=== PATIENT | male | born 1970 | race Caucasian/White ===

== ENCOUNTER 2017-04-14 09:46 | Emergency (ER) | payer OTHER ==
[2017-04-14] MEDS ORDERED: Sodium Chloride 0.9% 2.5 ML Syringe FLUSH PRN (10:03)
[2017-04-14] MEDS ORDERED: Sodium Chloride 0.9% 10 ML Syringe FLUSH PRN (10:03)
--- NOTE | 2017-04-14 10:03 | EDM.PDOC ---
ED HPI GENERAL MEDICAL PROBLEM - General Chief Complaint: Flank Pain Stated Complaint: POSSIBLE KIDNEYSTONE Time Seen by Provider: 04/14/17 09:48 Source of Information: Reports: Patient - History of Present Illness INITIAL COMMENTS - FREE TEXT/NARRATIVE: History of present illness: []Patient started having left flank pain last night. Worked out 2 nights ago and thought he needed just pulled a muscle however pain started getting worse with sharp pain without movement. Pain is now Radiating to his left lower abdomen at this time and he feels he may have a kidney stone. Patient had one 10 years ago and he recalls the pain as being similar. Review of systems: As per history of present illness and below otherwise all systems reviewed and negative. Past medical history: As per history of present illness and as reviewed below otherwise noncontributory. Surgical history: As per history of present illness and as reviewed below otherwise noncontributory. Social history: No reported history of drug or alcohol abuse. Family history: As per history of present illness and as reviewed below otherwise noncontributory. Physical exam: General: Well developed, well nourished in NAD HEENT: Atraumatic, normocephalic, pupils reactive, negative for conjunctival pallor or scleral icterus, mucous membranes moist, throat clear, neck supple, nontender, trachea midline. Lungs: Clear to auscultation, breath sounds equal bilaterally, chest nontender. Heart: S1S2, regular, negative for clicks, rubs, or JVD. Abdomen: Soft, nondistended, nontender. Negative for masses or hepatosplenomegaly. Negative for costovertebral tenderness. Pelvis: Stable nontender. Genitourinary: Deferred. Rectal: Deferred. Extremities: Atraumatic, negative for cords or calf pain. Neurovascular unremarkable. Neuro: Awake, alert, oriented. Cranial nerves II through XII unremarkable. Cerebellum unremarkable. Motor and sensory unremarkable throughout. Exam nonfocal. Diagnostics: []CT shows 5 mm stone in the left UVJ that is nonobstructing, labs are normal Therapeutics: []IV fluids Toradol and Dilaudid given in the ED and Flomax Impression: []Ureterolithiasis Plan: []Follow-up urology take meds as directed return if symptoms worsen Definitive disposition and diagnosis as appropriate pending reevaluation and review of above. left flank Pain Score (Numeric/FACES): 7 - Related Data Allergies Allergy/AdvReac Type Severity Reaction Status Date / Time No Known Allergies Allergy Verified 04/14/17 09:47 Home Meds: Home Meds Gluc/Jose-Msm#2/C/D3/Suman/Born [Jfbcmjetgr-Qokuscffivf-WHS] 1,500 mg PO DAILY [History] Tamsulosin HCl [Flomax] 0.4 mg PO DAILY #14 cap.er.24h 04/14/17 [Rx] metFORMIN [Glucophage] 0 mg PO DAILY 04/14/17 [History] traMADol HCl [Tramadol HCl] 50 mg PO Q6H PRN #16 tablet 04/14/17 [Rx] ED ROS GENERAL - Review of Systems Review Of Systems: See Below (See history of present illness) ED EXAM, GI/ABD - Physical Exam Exam: See Below (See history of present illness) Course - Vital Signs Last Recorded V/S: Last Vital Signs Temp 97.3 F 04/14/17 09:46 Pulse 59 L 04/14/17 09:46 Resp 18 04/14/17 09:46 BP 155/71 H 04/14/17 09:46 Pulse Ox 97 04/14/17 09:46 - Orders/Labs/Meds Orders: Active Orders 24 hr Category Date Time Status Abdomen Pelvis wo Cont [CT] Stat Exams 04/14/17 10:24 Taken Sodium Chloride 0.9% [Saline Flush] Med 04/14/17 10:03 Active 10 ml FLUSH ASDIRECTED PRN Sodium Chloride 0.9% [Saline Flush] Med 04/14/17 10:03 Active 2.5 ml FLUSH ASDIRECTED PRN Saline Lock Insert [OM.PC] Stat Oth 04/14/17 10:03 Ordered Medication Orders Sodium Chloride (Saline Flush) 10 ml FLUSH ASDIRECTED PRN PRN Reason: Keep Vein Open Sodium Chloride (Saline Flush) 2.5 ml FLUSH ASDIRECTED PRN PRN Reason: Keep Vein Open Labs: Laboratory Tests 04/14/17 04/14/17 04/14/17 Range/Units 10:02 10:10 10:10 WBC 5.37 (4.0-11.0) K/uL RBC 4.61 (4.50-5.90) M/uL Hgb 14.2 (13.0-17.0) g/dL Hct 41.5 (38.0-50.0) % MCV 90.0 (80.0-98.0) fL MCH 30.8 (27.0-32.0) pg MCHC 34.2 (31.0-37.0) g/dL RDW Std Deviation 42.4 (28.0-62.0) fl RDW Coeff of Lena 13 (11.0-15.0) % Plt Count 273 (150-400) K/uL MPV 10.40 (7.40-12.00) fL Neut % (Auto) 63.2 (48.0-80.0) % Lymph % (Auto) 25.3 (16.0-40.0) % [place] % (Auto) 8.9 (0.0-15.0) % Eos % (Auto) 1.9 (0.0-7.0) % Baso % (Auto) 0.7 (0.0-1.5) % Neut # (Auto) 3.4 (1.4-5.7) K/uL Lymph # (Auto) 1.4 (0.6-2.4) K/uL [place] # (Auto) 0.5 (0.0-0.8) K/uL Eos # (Auto) 0.1 (0.0-0.7) K/uL Baso # (Auto) 0.0 (0.0-0.1) K/uL Nucleated RBC % 0.0 /100WBC Nucleated RBCs # 0 K/uL Sodium 140 (136-146) mmol/L Potassium 3.6 (3.5-5.1) mmol/L Chloride 106 (98-110) mmol/L Carbon Dioxide 27 (21-31) mmol/L BUN 13 (6.0-23.0) mg/dL Creatinine 1.0 (0.6-1.5) mg/dL Est Cr Clr Drug Dosing 96.22 mL/min Estimated GFR (MDRD) > 60.0 ml/min Glucose 119 H (60-110) mg/dL Calcium 9.0 (8.8-10.8) mg/dL Total Bilirubin 0.7 (0.1-1.5) mg/dL AST 24 (5-40) IU/L ALT 38 (8-54) IU/L Alkaline Phosphatase 59 (40-150) Total Protein 7.1 (6.0-8.0) g/dL Albumin 4.2 (3.5-5.0) g/dL Globulin 2.9 (2.0-3.5) g/dL Albumin/Globulin Ratio 1.5 (1.3-2.8) Lipase 78 (7-80) U/L Urine Color YELLOW Urine Appearance SLT CLOUDY Urine pH 5.5 (5.0-8.0) Ur Specific [place] >= 1.030 (1.001-1.035) Urine Protein TRACE (NEGATIVE) mg/dL Urine Glucose (UA) NEGATIVE (NEGATIVE) mg/dL Urine Ketones NEGATIVE (NEGATIVE) mg/dL Urine Occult Blood LARGE H (NEGATIVE) Urine Nitrite NEGATIVE (NEGATIVE) Urine Bilirubin SMALL H (NEGATIVE) Urine Ictotest NEGATIVE Urine Urobilinogen 0.2 (<2.0) EU/dL Ur Leukocyte Esterase NEGATIVE (NEGATIVE) Urine RBC 75-100 (0-2/HPF) Urine WBC 0-2 (0-5/HPF) Ur Epithelial Cells FEW (NONE-FEW) Amorphous Sediment MODERATE (NEGATIVE) Urine Bacteria FEW (NEGATIVE) Urine Mucus MODERATE (NONE-MOD) Meds: Medications Generic Name Dose Route Start Last Admin Trade Name Freq PRN Reason Stop Dose Admin Sodium Chloride 10 ml 04/14/17 10:03 Saline Flush FLUSH ASDIRECTED PRN Keep Vein Open Sodium Chloride 2.5 ml 04/14/17 10:03 Saline Flush FLUSH ASDIRECTED PRN Keep Vein Open Discontinued Medications Generic Name Dose Route Start Last Admin Trade Name Freq PRN Reason Stop Dose Admin Hydromorphone HCl 1 mg 04/14/17 12:20 Dilaudid IVPUSH 04/14/17 12:21 ONETIME ONE Ketorolac Tromethamine 30 mg 04/14/17 10:06 04/14/17 10:15 Toradol IVPUSH 04/14/17 10:07 30 mg ONETIME ONE Administration Ondansetron HCl 4 mg 04/14/17 12:20 Zofran IVPUSH 04/14/17 12:21 ONETIME ONE Departure - Departure Time of Disposition: 12:23 Disposition: Home, Self-Care 01 Condition: Good Clinical Impression: Ureterolithiasis - Discharge Information Prescriptions: Tamsulosin HCl [Flomax] 0.4 mg PO DAILY #14 cap.er.24h traMADol HCl [Tramadol HCl] 50 mg PO Q6H PRN #16 tablet PRN Reason: Pain Referrals: PCP,None [Primary Care Provider] - Lina Pace MD [Physician] - Forms: ED Department Discharge, ED Summary Discharge Care Plan Goals: The following information is given to patients seen in the emergency department who are being discharged to home. This information is to outline your options for follow-up care. We provide all patients seen in our emergency department with a follow-up referral. The need for follow-up, as well as the timing and circumstances, are variable depending upon the specifics of your emergency department visit. If you don't have a primary care physician on staff, we will provide you with a referral. We always advise you to contact your personal physician following an emergency department visit to inform them of the circumstance of the visit and for follow-up with them and/or the need for any referrals to a consulting specialist. The emergency department will also refer you to a specialist when appropriate. This referral assures that you have the opportunity for follow-up care with a specialist. All of these measure are taken in an effort to provide you with optimal care, which includes your follow-up. Under all circumstances we always encourage you to contact your private physician who remains a resource for coordinating your care. When calling for follow-up care, please make the office aware that this follow-up is from your recent emergency room visit. If for any reason you are refused follow-up, please contact the [facility] Emergency Department at and asked to speak to the emergency department charge nurse. Flomax and tramadol for pain follow-up with urology if needed increase fluids return if symptoms worsen or change. [facility] Specialty [facility] - Urology [address] [place] [id number] - My Orders Last 24 Hours: My Active Orders 04/14/17 10:03 Sodium Chloride 0.9% [Saline Flush] 10 ml FLUSH ASDIRECTED PRN Sodium Chloride 0.9% [Saline Flush] 2.5 ml FLUSH ASDIRECTED PRN Saline Lock Insert [OM.PC] Stat 02/10/18 10:24 Abdomen Pelvis wo Cont [CT] Stat - Assessment/Plan Last 24 Hours: My Active Orders 04/14/17 10:03 Sodium Chloride 0.9% [Saline Flush] 10 ml FLUSH ASDIRECTED PRN Sodium Chloride 0.9% [Saline Flush] 2.5 ml FLUSH ASDIRECTED PRN Saline Lock Insert [OM.PC] Stat 04/14/17 10:24 Abdomen Pelvis wo Cont [CT] Stat
[2017-04-14] MEDS ORDERED: Ketorolac 30 MG/ML SDV IVPUSH ONE (10:06)
[2017-04-14 10:49] LABS: CHLORIDE,CL 106 mmol/L (98-110); SODIUM,NA 140 mmol/L (136-146)
[2017-04-14] MEDS ORDERED: HYDROmorphone 1 MG/ML Syringe IVPUSH ONE (12:20)
[2017-04-14] MEDS ORDERED: Ondansetron 4 MG/2 ML SDV IVPUSH ONE (12:20)
--- NOTE | 2017-04-16 11:25 | CT ---
EXAM DATE: 04/14/17 PATIENT'S AGE: 46 Patient: ELIZABETH BOATENG Facility: [place], [place] Site . Site : [id number] Study: CT Abdomen/Pelvis [id number]/10/2018 11:24:24 AM Ordering Physician: Jorge Alberto Lara Final Report: INDICATION: Abdominal pain. TECHNIQUE: Contrast technique noncontrast CT abdomen pelvis with coronal side reformatted images obtained. COMPARISON: No comparison studies are available. FINDINGS: Heart size is normal. The lung bases are clear. The unenhanced liver spleen, pancreas, adrenal glands are unremarkable cholecystectomy change. No abdominal aortic aneurysm. Bilateral punctate nonobstructing renal calculi. No hydronephrosis on the right. There is a 5 mm left distal ureteral stone just proximal to the UVJ causing mild to moderate hydronephrosis and hydroureter. Urinary bladder is unremarkable. Prostate gland is not enlarged. The bowel appears unremarkable. Normal appendix PE there is a 3.6 x 2.8 cm the low-density triangular fluid collection in the subcutaneous tissues at the level of the umbilicus. Mild subcutaneous stranding along the anterior abdomen. Question postsurgical change. Osseous structures are unremarkable. IMPRESSION: 1. 5 millimeter left distal ureter stone just proximal to the UVJ causing mild to moderate hydronephrosis and hydroureter . Bilateral punctate nonobstructing renal calculi . 2. Subcutaneous soft tissue stranding along the central abdomen with 3.6 x 2.8 centimeter low-density fluid collection at the level of the umbilicus . Question postsurgical collection which may or may not be infected. Please note that all CT scans at this facility use dose modulation, iterative reconstruction, and/or weight-based dosing when appropriate to reduce radiation dose to as low as reasonably achievable. Dictated by Liberty Estevez MD @ Apr 14 2017 11:55AM (Electronic Signature) Report Signed by Proxy. NIKOLAS
== END 2017-04-14 12:45 | disposition home or self-care (01) ==
LOC: MW.ED 09:46
DX: N13.2 Hydronephrosis with renal and ureteral calculous obstruction (principal); N13.4 Hydroureter; Z79.899 Other long term (current) drug therapy; Z79.84 Long term (current) use of oral hypoglycemic drugs
CPT/HCPCS: 36415; 74176; 80053; 81001; 83690; 85025; 96374; 96375; 99284; J1170; J1885; J2405; 99283